=== PATIENT | female | born 1945 | race Caucasian/White ===

== ENCOUNTER 2019-07-24 12:03 | Emergency (ER) | payer MEDICARE, OTHER ==
[2019-07-24] MEDS ORDERED: SODIUM CHLORIDE 0.9% 1,000 ML IV STA (13:13)
--- NOTE | 2019-07-24 13:21 | ED Physician Documentation ---
PD HPI ALTERED MENTAL STATUS - Stated complaint Stated Complaint: HIGH BLOOD SUGAR - Chief complaint Chief Complaint: Neuro - History obtained from History obtained from: Patient - History of Present Illness Timing - onset: Today (This is a 73-year-old woman who presents with her granddaughter. She lives in [facility] and was recently diagnosed with pancreatic cancer, metastatic with obstruction and was flown to [facility] where she was patient for almost the last week and reportedly had stenting of her biliary system to relieve the jaundice. Unclear if she had an MRI of her head at that time or unclear if she had discussions of goals of care/prognosis. She had a port placed and was getting ready to go back to [place] where she would have oncologic treatment. But she came progressively altered this morning and unresponsive. Her blood sugar was high and she was administered some insulin. Otherwise the only medication she has had today was Synthroid. No reported fevers, cough, or urinary complaints.) Review of Systems Unable to obtain: Confused PD PAST MEDICAL HISTORY - Present Medications Home Medications: Ambulatory Orders Medication Instructions Recorded Confirmed Atorvastatin Calcium [Lipitor] 1 tab PO QPM 07/24/19 07/24/19 Clopidogrel [Plavix] 1 tab PO DAILY 07/24/19 07/24/19 Levothyroxine Sodium [Synthroid] 175 mcg PO DAILY 07/24/19 07/24/19 Losartan [Cozaar] 1 tab PO DAILY 07/24/19 07/24/19 Metoprolol Tartrate 12.5 mg PO BID 07/24/19 07/24/19 Sertraline HCl [Zoloft] 1 tab PO DAILY 07/24/19 07/24/19 amLODIPine [Norvasc] 10 mg PO DAILY 07/24/19 07/24/19 - Allergies Allergies/Adverse Reactions: Allergies Allergy/AdvReac Type Severity Reaction Status Date / Time hydrocodone Allergy Nausea Verified 07/24/19 12:41 PD ED PE NORMAL - Vitals Vital signs reviewed: Yes - General General: Other (She is alert and follows simple commands. She is nonverbal except for just a little bit of mumbling gibberish) - HEENT HEENT: PERRL, EOMI, Other (Dry mucous membranes) - Neck Neck: Supple, no meningeal sign, No bony TTP - Cardiac Cardiac: RRR, No murmur - Respiratory Respiratory: Other (In contrast to the triage vitals she is tachypneic, but lungs are clear) - Abdomen Abdomen: Soft, Non tender - Back Back: No CVA TTP, No spinal TTP - Derm Derm: Other (There is a fresh port in the right upper chest wall) - Extremities Extremities: No edema, No calf tenderness / cord - Neuro Eye Opening: Spontaneous Motor: Obeys Commands Verbal: Incomprehensible GCS Score: 12 Results - Vitals Vitals: Vital Signs - 24 hr 07/24/19 07/24/19 07/24/19 12:41 13:19 13:30 Temperature 36.5 C Heart Rate 55 L 48 L 43 L Respiratory 14 28 H 26 H Rate Blood Pressure 125/32 L 142/44 H 144/42 H O2 Saturation 99 95 96 Oxygen O2 Source Room air - EKG (time done) 1332 Rate: Rate (enter#) (43) Rhythm: Other (Narrow complex junctional rhythm) [place]: Normal Intervals: No: Normal [place] (Not applicable) QRS: Normal Ischemia: Non specific changes (Minimal lateral ST depression and borderline prolonged QT) Computer interpretation: Agree with computer - Labs Labs: Laboratory Tests 07/24/19 07/24/19 07/24/19 12:39 13:20 13:23 WBC 13.5 H RBC 2.47 L Hgb 7.7 L Hct 24.6 L MCV 99.6 H MCH 31.2 H MCHC 31.3 L RDW 17.2 H Plt Count 294 MPV 11.1 H Neut # (Auto) 10.6 H Lymph # (Auto) 1.6 [place] # (Auto) 0.9 Eos # (Auto) 0.1 Baso # (Auto) 0.1 Absolute Nucleated RBC 0.00 Nucleated RBC % 0.0 PT INR VBG pH VBG pCO2 VBG pO2 VBG HCO3 VBG Total CO2 VBG O2 Saturation VBG Base Excess Sodium Potassium Chloride Carbon Dioxide Anion Gap BUN Creatinine Estimated GFR (MDRD) Glucose POC Whole Bld Glucose 355 H Lactic Acid Calcium Magnesium Total Bilirubin AST ALT Alkaline Phosphatase Ammonia Troponin I High Sens B-Natriuretic Peptide Total Protein Albumin Globulin Albumin/Globulin Ratio Lipase Urine Color BROWN Urine Clarity CLEAR Urine pH 5.5 Ur Specific [place] >=1.030 H Urine Protein 30 H Urine Glucose (UA) NEGATIVE Urine Ketones TRACE Urine Occult Blood NEGATIVE Urine Nitrite NEGATIVE Urine Bilirubin NEGATIVE Urine Urobilinogen 2 H Ur Leukocyte Esterase NEGATIVE Urine RBC 0-5 Urine WBC 0-3 Ur Squamous Epith Cells MOD Squamous H Urine Bacteria Few Ur Microscopic Review INDICATED Urine Culture Comments NOT INDICATED Serum Ketones 07/24/19 07/24/19 07/24/19 13:23 13:23 13:23 WBC RBC Hgb Hct MCV MCH MCHC RDW Plt Count MPV Neut # (Auto) Lymph # (Auto) [place] # (Auto) Eos # (Auto) Baso # (Auto) Absolute Nucleated RBC Nucleated RBC % PT INR VBG pH 7.263 L VBG pCO2 27.2 L VBG pO2 30.1 VBG HCO3 12.0 L VBG Total CO2 12.8 L VBG O2 Saturation 45.0 L VBG Base Excess -13.7 L Sodium 129 L Potassium 4.7 Chloride 100 L Carbon Dioxide 16 L Anion Gap 13.0 BUN 32 H Creatinine 1.6 H Estimated GFR (MDRD) 32 L Glucose 398 H POC Whole Bld Glucose Lactic Acid 3.1 H* Calcium 8.6 Magnesium 1.8 Total Bilirubin 5.1 H AST 174 H ALT 146 H Alkaline Phosphatase 1778 H Ammonia Troponin I High Sens B-Natriuretic Peptide Total Protein 5.8 L Albumin 2.7 L Globulin 3.1 Albumin/Globulin Ratio 0.9 L Lipase 81 H Urine Color Urine Clarity Urine pH Ur Specific [place] Urine Protein Urine Glucose (UA) Urine Ketones Urine Occult Blood Urine Nitrite Urine Bilirubin Urine Urobilinogen Ur Leukocyte Esterase Urine RBC Urine WBC Ur Squamous Epith Cells Urine Bacteria Ur Microscopic Review Urine Culture Comments Serum Ketones NEGATIVE 07/24/19 07/24/19 07/24/19 13:23 14:07 14:07 WBC RBC Hgb Hct MCV MCH MCHC RDW Plt Count MPV Neut # (Auto) Lymph # (Auto) [place] # (Auto) Eos # (Auto) Baso # (Auto) Absolute Nucleated RBC Nucleated RBC % PT 12.6 INR 1.1 VBG pH VBG pCO2 VBG pO2 VBG HCO3 VBG Total CO2 VBG O2 Saturation VBG Base Excess Sodium Potassium Chloride Carbon Dioxide Anion Gap BUN Creatinine Estimated GFR (MDRD) Glucose POC Whole Bld Glucose Lactic Acid Calcium Magnesium Total Bilirubin AST ALT Alkaline Phosphatase Ammonia Troponin I High Sens 48.9 H* B-Natriuretic Peptide 2406 H Total Protein Albumin Globulin Albumin/Globulin Ratio Lipase Urine Color Urine Clarity Urine pH Ur Specific [place] Urine Protein Urine Glucose (UA) Urine Ketones Urine Occult Blood Urine Nitrite Urine Bilirubin Urine Urobilinogen Ur Leukocyte Esterase Urine RBC Urine WBC Ur Squamous Epith Cells Urine Bacteria Ur Microscopic Review Urine Culture Comments Serum Ketones 07/24/19 14:07 WBC RBC Hgb Hct MCV MCH MCHC RDW Plt Count MPV Neut # (Auto) Lymph # (Auto) [place] # (Auto) Eos # (Auto) Baso # (Auto) Absolute Nucleated RBC Nucleated RBC % PT INR VBG pH VBG pCO2 VBG pO2 VBG HCO3 VBG Total CO2 VBG O2 Saturation VBG Base Excess Sodium Potassium Chloride Carbon Dioxide Anion Gap BUN Creatinine Estimated GFR (MDRD) Glucose POC Whole Bld Glucose Lactic Acid Calcium Magnesium Total Bilirubin AST ALT Alkaline Phosphatase Ammonia 43.4 H Troponin I High Sens B-Natriuretic Peptide Total Protein Albumin Globulin Albumin/Globulin Ratio Lipase Urine Color Urine Clarity Urine pH Ur Specific [place] Urine Protein Urine Glucose (UA) Urine Ketones Urine Occult Blood Urine Nitrite Urine Bilirubin Urine Urobilinogen Ur Leukocyte Esterase Urine RBC Urine WBC Ur Squamous Epith Cells Urine Bacteria Ur Microscopic Review Urine Culture Comments Serum Ketones PD MEDICAL DECISION MAKING - ED course ED course: 73-year-old woman presents with an acute encephalopathy in the setting of known metastatic pancreatic cancer and recent stent placement down at [facility] for obstruction. Her blood sugar is high but she is not in diabetic ketoacidosis. I think it is unlikely that hyperglycemia alone would cause her encephalopathy. She is a little tachypneic, she is also found to be acidotic, but not ketoacidotic. She could be septic, but there is no clear source, chest x-ray is clear, her belly is benign. She does have an obstructive pattern on her liver enzymes, I do not have priors so I do not know how much this is improved from previous, but the family does say she is much less jaundiced than she was. There is no fever. No evidence of UTI. Head CT looks pretty normal to me, final read pending. I had a long conversation with her daughter who is her POA by phone. The daughter understands that the prognosis is terminal and the goals of care are to try to get her healthy enough that she can travel back to [place] which is her home. The encephalopathy is also not from the bradycardia primarily. I have a high suspicion for occult infection and she will be cultured up and given cefepime. She was accepted to [facility] under the care of Dr. Tara Mansfield, hospitalist at 3:30 PM and cobras were completed. She is stable for transport by ground for a higher level of care. Departure - Departure Disposition: 02 Transfer Acute Care Hosp Clinical Impression: Bradycardia, Malignant biliary obstruction, Encephalopathy, Metabolic acidosis Condition: Serious
[2019-07-24 13:37] LABS: VBG BASE EXCESS -13.7 mmol/L (-2 - +2); VBG PCO2 27.2 mmHg (41-51); VBG PH 7.263 (7.31-7.41); VBG PO2 30.1 mmHg (25-47); VBG TOTAL CO2 12.8 mmol/L (24-29)
--- NOTE | 2019-07-24 13:37 | XRAY Report ---
Reason: altered Procedure Date: 07/24/2019 Accession Number: [id number] / [id number] Procedure: XR - Chest 1 View X-Ray CPT Code: 68626 Final Report FULL RESULT: EXAM: CHEST RADIOGRAPHY EXAM DATE: 07/24/2019 01:27 PM. CLINICAL HISTORY: Altered mental status COMPARISON: THORAX CAP W (ADULT) 07/20/2019 11:07 AM. TECHNIQUE: 1 view. FINDINGS: Lungs/Pleura: The patient's chin partially obscures the apices. Hazy left basilar opacity likely representing atelectasis. No pleural effusion. No pneumothorax is seen. Mediastinum: Within exam limitations, the cardiomediastinal contour is normal. Other: A right sided port catheter terminates in the mid SVC. IMPRESSION: The patient's chin partially obscures the apices. No evident acute cardiopulmonary abnormality. RADIA
[2019-07-24 13:41] LABS: BASOPHILS # (AUTO) 0.1 10^3/uL (0.0-0.1); BASOPHILS % (AUTO) 0.6 %; EOSINOPHILS # (AUTO) 0.1 10^3/uL (0.0-0.7); EOSINOPHILS % (AUTO) 0.7 %; HGB - HEMOGLOBIN 7.7 g/dL (12.0-16.0); LYMPHOCYTES # (AUTO) 1.6 10^3/uL (1.5-3.5); LYMPHOCYTES % (AUTO) 11.6 %; MEAN CORPUSCULAR HEMOGLOBIN 31.2 pg (27.0-31.0); MEAN CORPUSCULAR HGB CONC 31.3 g/dL (32.0-36.0); MEAN CORPUSCULAR VOLUME 99.6 fL (81.0-99.0); MEAN PLATELET VOLUME 11.1 fL (7.9-10.8); MONOCYTES # (AUTO) 0.9 10^3/uL (0.0-1.0); MONOCYTES % (AUTO) 6.7 %; NEUTROPHILS # (AUTO) 10.6 10^3/uL (1.5-6.6); NEUTROPHILS % (AUTO) 78.9 %; PLT - PLATELET COUNT 294 10^3/uL (130-450); RED BLOOD COUNT 2.47 10^6/uL (4.20-5.40); RED CELL DISTRIBUTION WIDTH 17.2 % (12.0-15.0); WHITE BLOOD COUNT 13.5 x10^3/uL (4.8-10.8)
[2019-07-24] MEDS ORDERED: ATROPINE ABBOJECT 0.5 MG/5 ML SYRINGE IVP STA (13:41)
[2019-07-24] MEDS ORDERED: ATROPINE ABBOJECT 1 MG/10 ML SYRINGE IVP ONE (13:46)
[2019-07-24 13:55] LABS: GLUCOSE, URINE (UA) NEGATIVE (NEGATIVE); KETONES,URINE (UA) TRACE mg/dL (NEGATIVE); LEUKOCYTE ESTERASE, URINE NEGATIVE (NEGATIVE); NITRITE,URINE NEGATIVE (NEGATIVE); OCCULT BLOOD,URINE NEGATIVE (NEGATIVE); PH,URINE 5.5 PH (5.0-7.5); PROTEIN,URINE 30 mg/dL (NEGATIVE); UROBILINOGEN,URINE 2 E.U./dL (NORMAL)
[2019-07-24] MEDS ORDERED: IOVERSOL 320 100 ML VIAL IVP ONE (14:02)
[2019-07-24 14:03] LABS: BILIRUBIN,URINE NEGATIVE (NEGATIVE); CLARITY,URINE CLEAR (CLEAR); ICTOTEST,URINE NEGATIVE
[2019-07-24 14:06] LABS: BACTERIA,URINE Few /HPF (None Seen); RBC,URINE 0-5 /HPF (0-5); SQUAMOUS EPITHELIAL CELL,UR MOD Squamous (<= Few)
[2019-07-24 14:20] LABS: INR 1.1 (0.8-1.2); PT - PROTHROMBIN TIME 12.6 secs (9.9-12.6)
[2019-07-24 14:24] LABS: ALBUMIN 2.7 g/dL (3.2-5.5); ALBUMIN/GLOBULIN RATIO 0.9 (1.0-2.2); ALKALINE PHOSPHATASE 1778 IU/L (42-121); ALT ALANINE AMINOTRANSFERASE 146 IU/L (10-60); AST ASPARTATE AMINOTRANSFERASE 174 IU/L (10-42); BILIRUBIN,TOTAL 5.1 mg/dL (0.2-1.0); BUN - BLOOD UREA NITROGEN 32 mg/dL (6-20); CALCIUM 8.6 mg/dL (8.5-10.3); CARBON DIOXIDE - CO2 16 mmol/L (21-32); CHLORIDE 100 mmol/L (101-111); CREATININE 1.6 mg/dL (0.4-1.0); GLUCOSE 398 mg/dL (70-100); LIPASE 81 U/L (22-51); MAGNESIUM 1.8 mg/dL (1.7-2.8); SODIUM 129 mmol/L (135-145); TOTAL PROTEIN 5.8 g/dL (6.7-8.2)
[2019-07-24 14:35] LABS: KETONES, SERUM (ACETEST) NEGATIVE (NEGATIVE)
[2019-07-24] MEDS ORDERED: CEFEPIME 2 GM in SODIUM CHLORIDE 0.9% MINIBAG 100 ML IV STA (14:44)
[2019-07-24] MEDS ORDERED: INSULIN REGULAR HUMAN 100 UNIT/1 ML 10 ML MDV IVP STA (14:53)
--- NOTE | 2019-07-24 15:15 | CT Report ---
Reason: altered Procedure Date: 07/24/2019 Accession Number: [id number] / [id number] Procedure: CT - HEAD WO CPT Code: Final Report FULL RESULT: EXAM: CT HEAD EXAM DATE: 07/24/2019 02:35 PM. CLINICAL HISTORY: Altered mental status. COMPARISON: None. TECHNIQUE: Multiaxial CT images were obtained from the foramen magnum to the vertex. Reformats: Sagittal and coronal. IV contrast: None. In accordance with CT protocol optimization, one or more of the following dose reduction techniques were utilized for this exam: automated exposure control, adjustment of mA and/or KV based on patient size, or use of iterative reconstructive technique. 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 Mild patchy white matter hypoattenuation elsewhere, compatible with chronic small vessel ischemic change. No intraparenchymal hemorrhage, mass effect, or CT findings of evolving acute/subacute infarct. Williamson-white differentiation is distinct. Extraaxial Spaces: Normal for age. No subdural or epidural collections identified. Ventricles: The ventricles and basal cisterns are patent. No hydrocephalus or midline shift. Sinuses: The visualized paranasal sinuses and mastoid air cells are clear. Bones: No evidence of fracture or calvarial defect. Other: The visualized superficial soft tissues are unremarkable; no hematoma or edema is evident. Atherosclerotic calcifications in the bilateral cavernous internal carotid and vertebral arteries. IMPRESSION: 1. 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 2. Mild chronic microvascular angiopathy. 3. No CT evidence of acute intracranial abnormality. RADIA
[2019-07-24 17:43] VITALS: BP 129/51
== END 2019-07-24 17:46 | disposition short-term general hospital (02) ==
LOC: ED 12:03
DX: G93.40 Encephalopathy, unspecified (principal); C25.9 Malignant neoplasm of pancreas, unspecified; C78.89 Secondary malignant neoplasm of other digestive organs; E87.2 Acidosis; R00.1 Bradycardia, unspecified; R06.82 Tachypnea, not elsewhere classified; Z79.02 Long term (current) use of antithrombotics/antiplatelets
CPT/HCPCS: 36415; 70450; 71045; 80053; 81001; 82009; 82140; 82803; 83605; 83690; 83735; 83880; 84484; 85025; 85610; 93005; 96365; 96375; 99285; J1815; 81003; 87040; 87086